=== PATIENT | female | born 1985 | race Caucasian/White ===

== ENCOUNTER 2017-03-24 06:33 | Day surgery (SDC) | payer MEDICAID, OTHER ==
[~2017-03-24 06:33] MED LIST: CEFAZOLIN 1 GM/D5W RTU 1 GM/50 ML RTUPB IV PRN
[2017-03-24] MEDS ORDERED: BUPIVACAINE HCL 0.5 % INJ/PF 30 ML SDV ONE (07:08)
[2017-03-24] MEDS ORDERED: LIDOCAINE 2% INJ (20 MG/ML) 20 ML MDV ONE (07:08)
[2017-03-24] MEDS ORDERED: POLYMYXIN B SULFATE INJ 500000 UNIT VIAL ONE (07:08)
[2017-03-24] MEDS ORDERED: NORMAL SALINE INJ/PF 0.9% 10 ML SDV ONE (07:09)
[2017-03-24] MEDS ORDERED: BACITRACIN INJ 50,000 UNIT VIAL ONE (07:09)
[2017-03-24] MEDS ORDERED: MIDAZOLAM 2 MG/2 ML INJ ONE ×2 (07:14→08:17)
[2017-03-24] MEDS ORDERED: ONDANSETRON HCL INJ/PF 4 MG/2 ML SDV ONE (07:15)
[2017-03-24] MEDS ORDERED: PROPOFOL INJ 200 MG/20 ML VIAL IV ONE ×2 (07:15→08:18)
[2017-03-24] MEDS ORDERED: FENTANYL CITRATE INJ/PF 100 MCG/2 ML AMPUL ONE ×2 (07:15→08:17)
[2017-03-24] MEDS ORDERED: BUPIVACAINE INJ/PF LIPOSOME/PF 266 MG/20 ML SDV ONE (08:13)
--- NOTE | 2017-03-24 10:11 | SURGICARE DISCHARGE SUMMARY E ---
[facility] Discharge Summary NAME: CAROLEE BRUNO AGE: 31Y ADMITTED: 03/24/2017 DISCHARGED: 03/24/2017 SURGICAL PROCEDURE: Correction of bunion by Nikita osteotomy with internal screw fixation, right foot. POSTOPERATIVE DIAGNOSIS: Hallux valgus right foot. SURGEON: FORD ROONEY DPM REAL ESTATE TEACHER: Nick So DPM HOSPITAL COURSE: The patient was admitted to [facility] with chief complaint of a painful bunion on her foot. She had undergone conservative therapy with different shoes and anti-inflammatories, but there was no change in her symptoms. Patient desired to have the bunion surgically corrected. She underwent the above surgical procedure without any complications and was transferred to the recovery room. She was discharged with a surgical shoe, an ice pack, postoperative instructions including no weightbearing on the surgical foot, and postoperative prescriptions for Percocet 5/325 mg #60, Phenergan 25 mg #30, and cephalexin 500 mg #4. She was given a followup appointment in the doctor's office in 1 week. The patient was discharged from [facility]. DICTATING PHYSICIAN: FORD ROONEY D.P.M. [id number] PHY#: [id number] ID: [id number] JOB#: [id number] ACCT: [id number] cc:FORD ROONEY DPM >
--- NOTE | 2017-03-24 10:54 | SURGICARE OPERATIVE REPORT E ---
[facility] Operative Report NAME: CAROLEE BRUNO AGE: 31Y DATE OF SURGERY: 03/24/2017 ROOM: PREOPERATIVE DIAGNOSIS: HALLUX VALGUS, RIGHT FOOT. POSTOPERATIVE DIAGNOSIS: HALLUX VALGUS, RIGHT FOOT. OPERATION: CORRECTION OF BUNION BY CHELSIE OSTEOTOMY WITH INTERNAL SCREW FIXATION, RIGHT FOOT. SURGEON: FORD ROONEY DPM SHOVEL MECHANIC: Nick So DPM SURGICAL PROCEDURE: Correction of bunion by Chelsie osteotomy with internal screw fixation, right foot. PROCEDURE: Following induction of IV regional and local anesthesia, the right foot and leg were prepped and draped in the usual sterile manner. A pneumatic tourniquet was placed around the right ankle and inflated to 250 mmHg after exsanguination of the limb via Esmarch bandage. The following surgical procedures was then performed: Correction of bunion by Chelsie osteotomy with internal screw fixation, right foot. Attention was directed to the dorsal aspect of the first metatarsal phalangeal joint of the right foot, where an approximately 5 cm dorsal linear incision was made. The incision was deepened via sharp dissection. All bleeders were clamped and bovied as necessary for the purposes of hemostasis. A capsule incision was made in the same manner as the original skin incision and was made medial to the extensor hallucis longus tendon. The capsule was then freed medially and laterally from the bone. Attention was then directed into the first interspace. Utilizing blunt dissection, the transverse adductor tendon was identified and isolated and sharply incised utilizing tenotomy scissors. Attention was directed back to the medial aspect of the first metatarsal head. Utilizing a Arkadin sagittal saw, the hypertrophied medial eminence of the first metatarsal head was osteotomized, parallel to the long axis of the bone, and removed in toto from the wound. The area was then rasped smooth utilizing a Arkadin cross-cut rasp. There was excess bone around the lip of the base of the proximal phalanx of the hallux and this was removed utilizing rongeurs. There was also a small erosion at the dorsal aspect of the first metatarsal head and this was removed utilizing a rongeur and the site was then rasped smooth utilizing a Arkadin cross-cut rasp. Chelsie osteotomy was then performed in the proximal phalanx. Approximately a 2 mm wedge of bone was removed. The osteotomy went from distal medial to proximal lateral, with the apex being at the lateral point; the base being on the medial side; and approximately 2 mm wedge of bone was removed. This was done utilizing a Arkadin sagittal saw. The site was then feathered utilizing the saw until the osteotomy closed down on its own. The osteotomy was then temporarily fixated utilizing a 0.86 guidewire. An X-ray was taken and it was noted that the guidewire was in good position. The osteotomy was closed down upon itself and that the first metatarsal phalangeal joint was now in a more anatomically-correct position. A reamer measure was then threaded down the guidewire. A hole was reamed to accept the head of the screw and it was noted that a 22 mm 2.3 cannulated screw would be needed. The screw was then head-threaded down the guidewire and tightened down until the osteotomy was closed down on itself and stably fixated. Another x-ray was taken and it was noted that this screw was in excellent position and again, the osteotomy was closed down on itself and stably fixated. The guidewire was removed. The area was then flushed with copious amounts of antibacterial saline solution. Bone wax was then applied to the medial aspect of the first metatarsal. The capsule was then coapted and maintained utilizing simple interrupted sutures of 3-0 Vicryl. Exparel was then subcutaneously injected along the incision and approximately 17 mL of it was used. The subcutaneous tissue was then closed utilizing simple interrupted sutures of 4-0 Vicryl. The skin was then coapted and maintained utilizing horizontal mattress sutures of 5-0 Nylon. A dry sterile dressing was then applied consisting of Jerry silk, 4 x 4s, Conform, Kerlix, and Coban. The pneumatic tourniquet was released. It was noted that all digits were warm and viable, and the patient was transferred to the recovery room. DICTATING PHYSICIAN: FORD ROONEY D.P.M. [id number] PHY#: [id number] ID: [id number] JOB#: [id number] ACCT: [id number] cc:FORD ROONEY DPM >
--- NOTE | 2017-03-24 14:05 | RADIOLOGY REPORT (SQ) ---
EXAM DESCRIPTION: FOOT RIGHT 2 VIEWS; NO CHG FLUORO COMPLETED DATE/TIME: 03/24/2017 12:08 pm REASON FOR STUDY: RT FOOT DOUBLE BUNIONECTOMY M20.21 HALLUX RIGIDUS, RIGHT FOOT COMPARISON: None. FLUOROSCOPY TIME: 2 seconds 2 C-arm images saved to PACS. TECHNIQUE: Intra-operative images acquired during surgical procedure to evaluate progress. NUMBER OF IMAGES: 2 C-arm images LIMITATIONS: None. FINDINGS: Intra procedural imaging and fluoro during an osteotomy and screw placement at the great t oe proximal phalanx. Bony resurfacing medial edge, 1st metatarsal head. Please see the operative re port for further details. IMPRESSION: Intra procedural imaging and fluoro COMMENT: Quality ID [id number]: Final reports for procedures using fluoroscopy that document radiation exp osure indices, or exposure time and number of fluorographic images (if radiation exposure indices are not available) Please consult full operative report of the attending physician for description of the procedure. TECHNICAL DOCUMENTATION: JOB ID: [id number] [employer]- All Rights Reserved
== END 2017-03-24 10:35 | disposition home or self-care (01) ==
LOC: SC 06:33
PROVIDERS: ATTEND Podiatrist Foot Surgery
PROC: 0QTN0ZZ Resection of Right Metatarsal, Open Approach (ICD-10-PCS; principal; 2017-03-24 07:30)
DX: M20.11 Hallux valgus (acquired), right foot (principal); K76.0 Fatty (change of) liver, not elsewhere classified; E66.9 Obesity, unspecified; G43.909 Migraine, unspecified, not intractable, without status migrainosus; Z87.891 Personal history of nicotine dependence; Z68.37 Body mass index [BMI] 37.0-37.9, adult; Z79.899 Other long term (current) drug therapy
CPT/HCPCS: 73620; 28292; C1713; C1769; J2250; J3490 ×4; J0690; J3010; J2405; J2704; C9290; 01480

== ENCOUNTER 2017-08-03 23:06 | Emergency (ER) | payer MEDICAID ==
[2017-08-03 23:14] VITALS: BP 126/79
--- NOTE | 2017-08-04 00:26 | RADIOLOGY REPORT (SQ) ---
EXAM DESCRIPTION: pelvis XR, hip XR CLINICAL HISTORY: 31 years, Female, Pain s/p fall COMPARISON: None. NUMBER OF VIEWS: Two TECHNIQUE: Frontal view of the pelvis, lateral view of the left hip LIMITATIONS: None. FINDINGS: No acute fracture or dislocation of the left hip. Intact pelvic ring. Symmetric SI joints. IMPRESSION: No acute osseous abnormality. 2011 [employer]- All Rights Reserved
[2017-08-04] MEDS ORDERED: TRAMADOL HCL 50 MG TABLET PO ONE (01:08)
--- NOTE | 2017-08-04 01:08 | ER Document Report ---
HPI - HPI Pain Level: 4 Context: Patient is a 31-year-old female presents emergency department after a fall. Patient states that she is ambulating and she slipped landing on her left hip. She admits that she has been able to ambulate. She admits to stiffness and pain along her left buttock. She denies any head injury. She denies any urinary/stool incontinence, saddle anesthesia, numbness or tingling in her bilateral lower extremities. States that she took 800 mg prior to arrival Past Medical History - Social History Smoking Status: Unknown if Ever Smoked Family History: Reviewed & Not Pertinent - Past Medical History Cardiac Medical History: Denies: Hx Heart Attack, Hx Hypertension Pulmonary Medical History: Denies: Hx Asthma Neurological Medical History: Denies: Hx Cerebrovascular Accident, Hx Seizures GI Medical History: Denies: Hx Hepatitis, Hx Hiatal Hernia, Hx Ulcer Infectious Medical History: Denies: Hx Hepatitis Past Surgical History: Reports: Hx Hysterectomy. Denies: Hx Mastectomy, Hx Open Heart Surgery, Hx Pacemaker Vertical Provider Document - CONSTITUTIONAL Agree With Documented VS: Yes Notes: PHYSICAL EXAM GENERAL: Alert, interacts well. HEAD: Normocephalic, atraumatic. EXTREMITIES: Moves all 4 extremities spontaneously. Patient able to bear weight. Able to flex the hip and internal and externally rotate. Pelvis nontender to rock test. No edema, radial and dorsalis pedis pulses 2/4 bilaterally. No cyanosis. NEUROLOGICAL: Alert and oriented x4. Normal speech. PSYCH: Normal affect, normal mood. SKIN: Warm, dry, normal turgor. No rashes or lesions noted. - INFECTION CONTROL TRAVEL OUTSIDE OF THE [place] IN LAST 30 DAYS: No Course - Re-evaluation Re-evalutation: 08/04/17 01:06 Patient is a 31-year-old female presents with symptoms and clinical history significant for a contusion. No evidence of a septic joint, gout flare, dislocation, or fracture on exam and imaging. Vitals wnl. At this time, I do not see an indication for labs or further imaging. Will discharge with conservative measures, return precautions, and follow-up recommendations. - Vital Signs Vital signs: Temp Pulse Resp BP Pulse Ox 98.6 F 71 20 126/79 H 98 08/03/17 23:12 08/03/17 23:12 08/03/17 23:12 08/03/17 23:12 08/03/17 23:12 - Diagnostic Test Radiology reviewed: Image reviewed, Reports reviewed Discharge - Discharge Clinical Impression: Fall Qualifiers: Encounter type: initial encounter Qualified Code(s): W19.XXXA - Unspecified fall, initial encounter Condition: Good Disposition: HOME, SELF-CARE Instructions: Contusion ([facility]) Prescriptions: Cyclobenzaprine HCl [Flexeril 10 mg Tablet] 10 mg PO TIDP PRN #6 tablet PRN Reason:
== END 2017-08-04 01:45 | disposition home or self-care (01) ==
LOC: ER 23:06
DX: M25.552 Pain in left hip (principal); W01.0XXA Fall on same level from slipping, tripping and stumbling without subsequent striking against object, initial encounter
CPT/HCPCS: 99283

== ENCOUNTER → 2017-08-30 | Outpatient (CLI) | payer MEDICAID ==
--- NOTE | 2017-08-30 13:15 | WOMENS IMAGING REPORT ---
EXAM DESCRIPTION: U/S ABDOMEN LIMITED COMPLETED DATE/TIME: 08/30/2017 1:00 pm REASON FOR STUDY: EPIGASTRIC PAIN; R10.13 R10.13 EPIGASTRIC PAIN K76.0 FATTY (CHANGE OF) LIVER, NO T ELSEWHERE CLASSIFIED COMPARISON: None. TECHNIQUE: Dynamic and static grayscale images acquired of the abdomen and recorded on PACS. Additio nal selected color Doppler and spectral images recorded. LIMITATIONS: None. FINDINGS: PANCREAS: No masses. Visualized pancreatic duct normal caliber. LIVER: Increased echogenicity consistent with fatty infiltration. No masses. LIVER VASCULATURE: Normal directional flow of the main portal vein and hepatic veins. GALLBLADDER: No stones. Normal wall thickness. No pericholecystic fluid. ULTRASOUND-DETECTED MYERS'S SIGN: Negative. INTRAHEPATIC DUCTS AND COMMON DUCT: CBD and intrahepatic ducts normal caliber. No filling defects. INFERIOR VENA CAVA: Normal flow. AORTA: Not visualized. RIGHT KIDNEY: Normal size. Normal echogenicity. No solid or suspicious masses. No hydronephrosis. No calcifications. PERITONEAL AND RIGHT PLEURAL SPACE: No ascites or effusions. OTHER: No other significant findings. IMPRESSION: Fatty liver. TECHNICAL DOCUMENTATION: JOB ID: [id number] [employer]- All Rights Reserved Reading location - IP/workstation name: [email or web address]
== END ==
LOC: WI 10:21
PROVIDERS: ATTEND Internal Medicine Gastroenterology
DX: R10.13 Epigastric pain (principal); K76.0 Fatty (change of) liver, not elsewhere classified
CPT/HCPCS: 76705

== ENCOUNTER 2017-10-28 20:04 | Emergency (ER) | payer MEDICAID ==
[2017-10-28] MEDS ORDERED: KETOROLAC TROMETHAMINE 60 MG/2 ML SDV IM ONE (20:41)
--- NOTE | 2017-10-28 20:48 | ER Document Report ---
ED GI/ - General Chief Complaint: Abdominal Pain Stated Complaint: ABDOMINAL PAIN Time Seen by Provider: 10/28/17 20:29 Mode of Arrival: Ambulatory Information source: Patient Notes: Patient is a 31-year-old female who presents with chief complaint of left lower quadrant pain for the last 3 weeks. Patient reports that pain has been intermittent since she did not think it was anything serious, over the last week the pain has become more constant and over the last 2 days the pain has become more severe. Patient reports the pain is mostly located to the left lower quadrant but does radiate up into the left flank. Patient reports nausea , denies vomiting or diarrhea. Patient denies any dysuria however she reports that she has had urinary tract infections in the past without dysuria. Patient has a history of PCOS, celiac disease, kidney infections and renal stones. TRAVEL OUTSIDE OF THE [place] IN LAST 30 DAYS: No - Related Data Allergies/Adverse Reactions: No Known Allergies Allergy (Unverified 03/17/17 12:41) Past Medical History - General Information source: Patient - Social History Smoking Status: Never Smoker Chew tobacco use (# tins/day): No Frequency of alcohol use: None Drug Abuse: None Family History: Reviewed & Not Pertinent Patient has suicidal ideation: No Patient has homicidal ideation: No - Past Medical History Cardiac Medical History: Denies: Hx Heart Attack, Hx Hypertension Pulmonary Medical History: Denies: Hx Asthma Neurological Medical History: Denies: Hx Cerebrovascular Accident, Hx Seizures Renal/ Medical History: Reports: Hx Ovarian Cysts, Other - PCOS. Denies: Hx Peritoneal Dialysis GI Medical History: Reports: Other - Celiac. Denies: Hx Hepatitis, Hx Hiatal Hernia, Hx Ulcer Infectious Medical History: Denies: Hx Hepatitis Past Surgical History: Reports: Hx Hysterectomy. Denies: Hx Mastectomy, Hx Open Heart Surgery, Hx Pacemaker - Immunizations Immunizations up to date: Yes Hx Diphtheria, Pertussis, Tetanus Vaccination: Yes Review of Systems - Review of Systems Constitutional: No symptoms reported EENT: No symptoms reported Cardiovascular: No symptoms reported Respiratory: No symptoms reported Gastrointestinal: See HPI Genitourinary: See HPI Female Genitourinary: No symptoms reported Musculoskeletal: No symptoms reported Skin: No symptoms reported Hematologic/Lymphatic: No symptoms reported Neurological/Psychological: No symptoms reported Physical Exam - Vital signs Vitals: Temp Pulse Resp BP Pulse Ox 98.8 F 77 16 122/69 98 10/28/17 20:11 10/28/17 20:11 10/28/17 20:11 10/28/17 20:11 10/28/17 20:11 - Notes Notes: PHYSICAL EXAMINATION: GENERAL: Well-appearing, well-nourished and in no acute distress. HEAD: Atraumatic, normocephalic. EYES: Pupils equal round and reactive to light, extraocular movements intact, conjunctiva are normal. ENT: Nares patent, oropharynx clear without exudates. Moist mucous membranes. NECK: Normal range of motion, supple without lymphadenopathy LUNGS: Breath sounds clear to auscultation bilaterally and equal. No wheezes rales or rhonchi. HEART: Regular rate and rhythm without murmurs ABDOMEN: Soft, nondistended abdomen. Tenderness to palpation to left lower quadrant. No guarding, no rebound. No masses appreciated. Female : No CVA tenderness Musculoskeletal: Normal range of motion, no pitting or edema. No cyanosis. NEUROLOGICAL: Cranial nerves grossly intact. Normal speech, normal gait. Normal sensory, motor exams PSYCH: Normal mood, normal affect. SKIN: Warm, Dry, normal turgor, no rashes or lesions noted. Course - Re-evaluation Re-evalutation: CBC, CMP and urinalysis are all unremarkable. Lipase is also within normal limits. Patient was sent for a transvaginal ultrasound to evaluate her ovaries for any possible ovarian cysts, this ultrasound was without any acute findings. I will place patient on a short 3 day course of cephalexin for cystitis and send urine for culture. Patient is agreeable to this plan. - Vital Signs Vital signs: Temp Pulse Resp BP Pulse Ox 98.8 F 77 16 122/69 98 10/28/17 20:11 10/28/17 20:11 10/28/17 20:11 10/28/17 20:11 10/28/17 20:11 - Laboratory Result Diagrams: 10/28/17 21:19 10/28/17 21:19 Laboratory results interpreted by me: 10/28/17 10/28/17 20:21 21:19 Plt Count 472 H Urine Blood SMALL H Discharge - Discharge Clinical Impression: Cystitis Condition: Stable Disposition: HOME, SELF-CARE Additional Instructions: Although your workup today was normal, I will be sending your urine for a urine culture. I will put you on a short 3 day course of antibiotics as her symptoms definitely align with a urinary tract infection. We will call you if there is anything abnormal on your culture. Please return to the emergency department for any worrisome symptoms. ANTIBIOTIC THERAPY: You have been given an antibiotic prescription. It's important that you take all the medication, unless instructed otherwise by your physician. Failure to complete the entire course can result in relapse of your condition. Common side effects of antibiotics include nausea, intestinal cramping, or diarrhea. Women may develop vaginal yeast infections, and babies can get yeast (thrush) in the mouth following the use of antibiotics. Contact your physician if you develop significant side effects from this medication. Allergy to this antibiotic can result in hives, wheezing, faintness, or itching. If symptoms of allergy occur, stop the medication and call the doctor. CEPHALEXIN: The antibiotic you've been prescribed is a member of the cephalosporin class. This type of antibiotic covers a wide variety of infections, including those of the skin, lungs, and urinary tract. It's useful for staph infections. This antibiotic is slightly similar to the penicillin family. In rare cases , a person who is allergic to penicillin will also be allergic to this medication. If you have had a severe allergic reaction to penicillin, and have not taken this antibiotic since that time, notify your doctor. Antibiotics which cover many germs ("broad spectrum" antibiotics) are more likely to cause diarrhea or "yeast" infections. Women prone to vaginal yeast problems may suffer an attack after taking this antibiotic. In infants, oral thrush (white spots "stuck" on the cheek) or yeast diaper rash may result. See your doctor if these problems occur. Call at once if you develop itching, hives , shortness of breath, or lightheadedness. FOLLOW-UP CARE: If you have been referred to a physician for follow-up care, call the physician s office for an appointment as you were instructed or within the next two days. If you experience worsening or a significant change in your symptoms, notify the physician immediately or return to the Emergency Department at any time for re-evaluation. Prescriptions: Cephalexin Monohydrate [Keflex 500 mg Capsule] 500 mg PO Q6H 3 Days #9 capsule
[2017-10-28 21:36] LABS: APPEARANCE,URINE CLEAR; BILIRUBIN,URINE NEGATIVE (NEGATIVE); COLOR,URINE STRAW; GLUCOSE, URINE NEGATIVE (NEGATIVE); KETONES,URINE NEGATIVE (NEGATIVE); LEUKOCYTE ESTERASE,URINE NEGATIVE (NEGATIVE); NITRITE,URINE NEGATIVE (NEGATIVE); PROTEIN,URINE NEGATIVE (NEGATIVE); URINE SPECIFIC GRAVITY 1.008; UROBILINOGEN,URINE NEGATIVE mg/dL (<2.0)
[2017-10-28 21:38] LABS: ABSOLUTE BASOPHILS # (AUTO) 0.1 10^3/uL (0.0-0.2); ABSOLUTE EOSINOPHILS # (AUTO) 0.1 10^3/uL (0.0-0.6); ABSOLUTE LYMPHOCYTES (AUTO) 2.5 10^3/uL (0.5-4.7); ABSOLUTE MONOCYTES (AUTO) 0.8 10^3/uL (0.1-1.4); ABSOLUTE NEUT (AUTO) 6.3 10^3/uL (1.7-8.2); BASOPHILS % (AUTO) 0.6 % (0-2); EOSINOPHILS % (AUTO) 1.4 % (0-6); HEMATOCRIT 36.1 % (36.0-47.0); HEMOGLOBIN 12.5 g/dL (12.0-15.5); LYMPHOCYTES % (AUTO) 25.8 % (13-45); MEAN CORPUSCULAR HEMOGLOBIN 31.9 pg (27.0-33.4); MEAN CORPUSCULAR HGB CONC 34.6 g/dL (32.0-36.0); MEAN CORPUSCULAR VOLUME 92 fl (80-97); PLATELET COUNT 472 10^3/uL (150-450); RED BLOOD COUNT 3.91 10^6/uL (3.72-5.28); RED CELL DISTRIBUTION WIDTH 12.9 % (11.5-14.0); SEGMENTED NEUTROPHILS % (AUTO) 64.2 % (42-78); TOTAL CELLS COUNTED % (AUTO) 100 %; WHITE BLOOD COUNT 9.9 10^3/uL (4.0-10.5)
[2017-10-28 21:52] LABS: ALANINE AMINOTRANSFERASE 34 U/L (9-52); ALBUMIN 4.4 g/dL (3.5-5.0); ALKALINE PHOSPHATASE 55 U/L (38-126); ANION GAP 15 (5-19); ASPARTATE AMINO TRANSFERASE 19 U/L (14-36); BILIRUBIN,DIRECT 0.2 mg/dL (0.0-0.4); BILIRUBIN,TOTAL 0.2 mg/dL (0.2-1.3); BLOOD UREA NITROGEN 12 mg/dL (7-20); CALCIUM 9.8 mg/dL (8.4-10.2); CARBON DIOXIDE 22 mmol/L (22-30); CHLORIDE 107 mmol/L (98-107); GLUCOSE 82 mg/dL (75-110); LIPASE 57.5 U/L (23-300); POTASSIUM 4.2 mmol/L (3.6-5.0); SODIUM 143.9 mmol/L (137-145); TOTAL PROTEIN 7.3 g/dL (6.3-8.2)
--- NOTE | 2017-10-28 23:13 | RADIOLOGY REPORT (SQ) ---
EXAM DESCRIPTION: US TRANSVAGINAL COMPLETED DATE/TME: 10/28/2017 21:55 CLINICAL HISTORY: 31 years, Female, LLQ pain hx of PCOS COMPARISON: None. TECHNIQUE: Complete pelvic ultrasound with transvaginal imaging. FINDINGS: Partial hysterectomy. The uterus is not identified. The ovaries are not identified bilaterally. No large adnexal masses. Tiny amount of free pelvic fluid. IMPRESSION: 1. Prior partial hysterectomy. Ovaries are not identified. 2. Tiny amount of free pelvic fluid. 2010 [employer]- All Rights Reserved
[2017-10-28] MEDS ORDERED: CEPHALEXIN 500 MG CAPSULE PO ONE (23:21)
[2017-10-28 23:39] VITALS: BP 124/79
== END 2017-10-28 23:37 | disposition home or self-care (01) ==
LOC: ER 20:04
DX: N30.90 Cystitis, unspecified without hematuria (principal); R10.32 Left lower quadrant pain; R11.0 Nausea; Z90.711 Acquired absence of uterus with remaining cervical stump
CPT/HCPCS: 99284; 96372; 36415; 87086; 83690; 85025; 80053; 81001; 76830; 93976; J1885

== ENCOUNTER 2018-01-12 06:37 | Day surgery (SDC) | payer MEDICAID ==
[2018-01-12] MEDS ORDERED: POLYMYXIN B SULFATE INJ 500000 UNIT VIAL ONE (07:12)
[2018-01-12] MEDS ORDERED: BUPIVACAINE HCL 0.5 % INJ/PF 30 ML SDV ONE (07:12)
[2018-01-12] MEDS ORDERED: NORMAL SALINE INJ/PF 0.9% 10 ML SDV ONE (07:13)
[2018-01-12] MEDS ORDERED: LIDOCAINE 2% INJ (20 MG/ML) 20 ML MDV ONE (07:13)
[2018-01-12] MEDS ORDERED: BACITRACIN INJ 50,000 UNIT VIAL ONE (07:13)
[2018-01-12] MEDS ORDERED: ONDANSETRON HCL INJ/PF 4 MG/2 ML SDV ONE (07:17)
[2018-01-12] MEDS ORDERED: HYDROMORPHONE HCL INJ/PF 2 MG/ML AMPULE ONE (07:18)
[2018-01-12] MEDS ORDERED: MIDAZOLAM 2 MG/2 ML INJ ONE (07:18)
[2018-01-12] MEDS ORDERED: FENTANYL CITRATE INJ/PF 100 MCG/2 ML AMPUL ONE (07:18)
[2018-01-12] MEDS ORDERED: PROPOFOL INJ 200 MG/20 ML VIAL IV ONE (07:19)
[2018-01-12] MEDS ORDERED: BUPIVACAINE INJ/PF LIPOSOME/PF 266 MG/20 ML SDV ONE (08:45)
--- NOTE | 2018-01-12 11:18 | RADIOLOGY REPORT (SQ) ---
EXAM DESCRIPTION: FOOT LEFT 2 VIEWS; NO CHG FLUORO COMPLETED DATE/TIME: 01/12/2018 11:05 am REASON FOR STUDY: LT FOOT BUNIONECTOMY M20.12 HALLUX VALGUS (ACQUIRED), LEFT FOOT COMPARISON: None. FLUOROSCOPY TIME: 0.07 seconds Spot images saved to PACS. TECHNIQUE: Intra-operative images acquired during surgical procedure to evaluate progress. NUMBER OF IMAGES: 1 LIMITATIONS: None. FINDINGS: Fluoroscopy was provided for intraoperative procedure. Single view demonstrates postsurgi fatmata changes in the proximal phalanx of the great toe. Please refer to the operative report for furth er discussion. IMPRESSION: IMAGE(S) OBTAINED DURING PROCEDURE. COMMENT: Quality ID [id number]: Final reports for procedures using fluoroscopy that document radiation exp osure indices, or exposure time and number of fluorographic images (if radiation exposure indices are not available) Please consult full operative report of the attending physician for description of the procedure. TECHNICAL DOCUMENTATION: JOB ID: [id number] [employer]- All Rights Reserved Reading location - IP/workstation name: [email or web address]
--- NOTE | 2018-01-12 11:18 | RADIOLOGY REPORT (SQ) ---
EXAM DESCRIPTION: FOOT LEFT 2 VIEWS; NO CHG FLUORO COMPLETED DATE/TIME: 01/12/2018 11:05 am REASON FOR STUDY: LT FOOT BUNIONECTOMY M20.12 HALLUX VALGUS (ACQUIRED), LEFT FOOT COMPARISON: None. FLUOROSCOPY TIME: 0.07 seconds Spot images saved to PACS. TECHNIQUE: Intra-operative images acquired during surgical procedure to evaluate progress. NUMBER OF IMAGES: 1 LIMITATIONS: None. FINDINGS: Fluoroscopy was provided for intraoperative procedure. Single view demonstrates postsurgi fatmata changes in the proximal phalanx of the great toe. Please refer to the operative report for furth er discussion. IMPRESSION: IMAGE(S) OBTAINED DURING PROCEDURE. COMMENT: Quality ID [id number]: Final reports for procedures using fluoroscopy that document radiation exp osure indices, or exposure time and number of fluorographic images (if radiation exposure indices are not available) Please consult full operative report of the attending physician for description of the procedure. TECHNICAL DOCUMENTATION: JOB ID: [id number] [employer]- All Rights Reserved Reading location - IP/workstation name: [email or web address]
--- NOTE | 2018-01-12 12:31 | SURGICARE OPERATIVE REPORT E ---
[facility] NAME: CAROLEE BRUNO AGE: 32Y DATE OF SURGERY: 01/12/2018 ROOM: PREOPERATIVE DIAGNOSIS: Hallux valgus, left foot. POSTOPERATIVE DIAGNOSIS: Hallux valgus, left foot. SURGICAL PROCEDURE: Correction bunion by Nikita osteotomy with internal fixation left foot. SURGEON: FORD ROONEY DPM MONITORING MANAGER: MARÍA ELENA RUSH DPM PROCEDURE: Following induction of IV regional local anesthesia, the left foot and leg were prepped and draped in the usual sterile manner. A pneumatic tourniquet was placed around the left ankle and inflated to 250 mmHg after exsanguination of the limb via Esmarch bandage. The following surgical procedure was then performed: Correction of bunion by Nikita osteotomy with internal fixation left foot. Attention was directed to the dorsal aspect of the first metatarsophalangeal joint of the left foot where an approximately 5 cm dorsal linear incision was made. The incision was deep and via sharp dissection. All bleeders were clamped and bovied as necessary for the purposes of hemostasis. A capsular incision was made in the same manner as the original skin incision. It was made medial to the extensor hallucis longus tendon. The capsule was then reflected medially and laterally from the first metatarsophalangeal joint. Attention was then directed to the first interspace, where utilizing blunt dissection the transverse adductor tendon was identified and isolated and then sharply incised. Attention was directed back to the medial aspect of the first metatarsal head where utilizing a Mariann sagittal saw the hypertrophied medial eminence of the first metatarsal head was osteotomized parallel to the long axis of the bone removed en toto to the wound. Attention was directed to the proximal phalanx where an Nikita osteotomy was then performed with the base being medial and the apex being lateral with an approximately 2 mm wedge of bone being removed. This was done utilizing a Mariann sagittal saw. Once the osteotomy was closed down on itself, it was temporarily fixated utilizing a 0.86 guidewire directed from the medial proximal condyle to distal lateral. An x-ray was taken and it was noted that the osteotomy was closed down on itself, that the wire was in a good position, and that the first metatarsophalangeal joint was in a more anatomic correction position. A reamer measure was threaded down the guidewire to ream a hole to accept the head of the screw and it was noted that a 20 mm 2.3 cancellous screw would be needed. The proximal aspect of the osteotomy was then overdrilled utilizing a 1.7 drill. The 20 mm 2.3 cancellous screw was threaded down the guidewire and tightened down until the osteotomy was stably fixated and closed down. The guidewire was removed and another x-ray was taken. It was noted that the screw was in excellent position and that the osteotomy was closed down on itself. The medial aspect of the first metatarsal head was then rasped smooth utilizing a PlovghcuDatabraid rasp. The site was then flushed with copious amounts of antibacterial saline solution. The capsule was then coapted and maintained utilizing simple interrupted sutures of 3-0 Vicryl. The subcutaneous tissue was then coapted and maintained utilizing simple interrupted sutures of 4-0 Vicryl. Total of 20 mL of Exparel was then injected along the surgical incision and the surgical site. The skin was then coapted and maintained utilizing horizontal mattress sutures of 5-0 nylon. Dry sterile dressing was then applied consisting of Jrery silk, 4 x 4s, Conform, Kerlix, and Coban. The pneumatic tourniquet was released. It was noted that all digits were warm and viable and the patient was transferred to the recovery room. DICTATING PHYSICIAN: FORD ROONEY D.P.M. [id number] PHY#: [id number] ID: [id number] JOB#: [id number] ACCT: [id number] cc:BECKIE WHITNEY
--- NOTE | 2018-01-13 09:21 | SURGICARE DISCHARGE SUMMARY E ---
[facility] Discharge Summary NAME: CAROLEE BRUNO AGE: 32Y ADMITTED: 01/12/2018 DISCHARGED: 01/12/2018 SURGICAL PROCEDURE: Correction bunion by Nikita osteotomy with internal fixation left foot. POSTOPERATIVE DIAGNOSIS: Hallux valgus, left foot. SURGEON: FORD ROONEY DPM GOLD LAYER: MARÍA ELENA RUSH DPM DISCHARGE SUMMARY: The patient was admitted to [facility] with a chief complaint of a painful bunion on her left foot. She stated that it had been sore for the past couple of months, especially when she wore shoes. Patient stated that she would like to have this problem surgically corrected and she had her right one done earlier in the year. Patient underwent the above surgical procedure without any complications and was transferred to the recovery room. She was discharged with a surgical shoe and ice pack, postoperative instructions including no weightbearing on the left foot, and postoperative prescriptions for Percocet 5/325 mg #50, Phenergan 25 mg #25, and cephalexin 500 mg #4. She was given a follow-up appointment at doctor's office in 1 week. The patient was discharged from [facility]. DICTATING PHYSICIAN: FORD ROONEY D.P.M. [id number] PHY#: [id number] ID: [id number] JOB#: [id number] ACCT: [id number] cc:FORD ROONEY DPM >
== END 2018-01-12 10:26 | disposition home or self-care (01) ==
LOC: SC 06:37
PROVIDERS: ATTEND Podiatrist Foot Surgery
DX: M20.12 Hallux valgus (acquired), left foot (principal); E78.5 Hyperlipidemia, unspecified; G43.909 Migraine, unspecified, not intractable, without status migrainosus; K58.9 Irritable bowel syndrome, unspecified; E55.9 Vitamin D deficiency, unspecified; Z79.899 Other long term (current) drug therapy; Z88.8 Allergy status to other drugs, medicaments and biological substances
CPT/HCPCS: 28298; 73620; C1769; C1713; J2250; J3490 ×5; J0690; J3010; J1170; J2405; J2704; C9290; 01480

== ENCOUNTER 2018-03-01 10:18 | Emergency (ER) | payer MEDICAID ==
[2018-03-01 10:32] VITALS: BP 121/74
--- NOTE | 2018-03-01 10:35 | ER Document Report ---
ED ENT - General Chief Complaint: Sore Throat Stated Complaint: SEVERE SORE THROAT Time Seen by Provider: 03/01/18 10:32 Mode of Arrival: Ambulatory Information source: Patient Notes: 32-year-old female presented to ED for complaint of sore throat swollen throat trouble breathing ears her joints hurt fever of 100 202 for the last 3 days. She states she takes Tylenol and Motrin but the fever comes right back. It is alert and oriented respirations regular and unlabored speaking in full sentences. She her temperature is 100.2 at this time pulse is 88 sats 100%. She does have a slightly swollen tonsils but they are not red or exudative. Strep test was sent. Flu test was also sent. TRAVEL OUTSIDE OF THE [place] IN LAST 30 DAYS: No - HPI Patient complains to provider of: Nose problem, Throat problem Onset: Other - 3 days Onset/Duration: Intermittent Quality of pain: Sharp, Stabbing Severity: Severe Pain Level: 5 Context: Injury, Recent Illness Location of pain: Nose, Sinus, Throat Associated symptoms: Ear pain, Fever, Runny nose, Sinus pain, Sinus drainage, Sore throat Similar symptoms previously: Yes Recently seen / treated by doctor: No - Related Data Allergies/Adverse Reactions: No Known Allergies Allergy (Verified 03/01/18 10:19) Past Medical History - Social History Smoking Status: Former Smoker Chew tobacco use (# tins/day): No Frequency of alcohol use: None Drug Abuse: None Occupation: MOM Lives with: Family Family History: Reviewed & Not Pertinent Patient has suicidal ideation: No Patient has homicidal ideation: No - Past Medical History Cardiac Medical History: Reports: None Pulmonary Medical History: Reports: None EENT Medical History: Reports: None Neurological Medical History: Reports: None Endocrine Medical History: Reports: None Renal/ Medical History: Reports: Hx Ovarian Cysts Malignancy Medical History: Reports: None GI Medical History: Reports: Other - Fatty liver disease Musculoskeletal Medical History: Reports Other - Bunions Skin Medical History: Reports None Psychiatric Medical History: Reports: None Traumatic Medical History: Reports: None Infectious Medical History: Denies: Hx Hepatitis Past Surgical History: Reports: Hx Hysterectomy, Other - Bilateral bunionectomy - Immunizations Immunizations up to date: Yes Hx Diphtheria, Pertussis, Tetanus Vaccination: Yes Review of Systems - Review of Systems Constitutional: Chills, Fever, Recent illness EENT: Nose congestion, Nose discharge, Sinus discharge, Throat pain Cardiovascular: No symptoms reported Respiratory: Cough Gastrointestinal: No symptoms reported Genitourinary: No symptoms reported Female Genitourinary: No symptoms reported Musculoskeletal: No symptoms reported Skin: No symptoms reported Hematologic/Lymphatic: No symptoms reported Neurological/Psychological: No symptoms reported Physical Exam - Vital signs Vitals: Temp Pulse Resp BP Pulse Ox 100.2 F 88 18 121/74 100 03/01/18 10:30 03/01/18 10:30 03/01/18 10:30 03/01/18 10:30 03/01/18 10:30 Interpretation: Normal - General General appearance: Appears well, Alert - HEENT Head: Normocephalic, Atraumatic Eyes: Normal Pupils: PERRL Ears: Normal External canal: Normal Tympanic membrane: Normal Sinus: Normal Nasal: Swelling, Clear rhinorrhea Mouth/Lips: Normal Mucous membranes: Normal Pharynx: Post nasal drainage. No: Erythema, Exudate, Tonsillar hypertrophy Neck: Anterior cervical chain - Respiratory Respiratory status: No respiratory distress Chest status: Nontender Breath sounds: Nonproductive cough. No: Productive cough, Rales, Rhonchi, Stridor, Wheezing Chest palpation: Normal - Cardiovascular Rhythm: Regular Heart sounds: Normal auscultation Murmur: No - Abdominal Inspection: Normal Distension: No distension Bowel sounds: Normal Tenderness: Nontender Organomegaly: No organomegaly - Back Back: Normal, Nontender - Extremities General upper extremity: Normal inspection, Nontender, Normal color, Normal ROM, Normal temperature General lower extremity: Normal inspection, Nontender, Normal color, Normal ROM, Normal temperature, Normal weight bearing. No: Chino's sign - Neurological Neuro grossly intact: Yes Cognition: Normal Orientation: AAOx4 Lisha Coma Scale Eye Opening: Spontaneous Lisha Coma Scale Verbal: Oriented Immaculata Coma Scale Motor: Obeys Commands Lisha Coma Scale Total: 15 Speech: Normal Motor strength normal: LUE, RUE, LLE, RLE Sensory: Normal - Psychological Associated symptoms: Normal affect, Normal mood - Skin Skin Temperature: Warm Skin Moisture: Dry Skin Color: Normal Course - Re-evaluation Re-evalutation: 03/01/18 11:07 Flu and strep test were both negative. Patient was given instructions on Mucinex Claritin and Sudafed Chloraseptic spray salt and soda solution gargles and follow-up with her primary doctor. Her lung sounds were clear. After performing a Medical Screening Examination, I estimate there is LOW risk for ACUTE CORONARY SYNDROME, RESPIRATORY FAILURE, SEPSIS OR MENINGITIS, thus I consider the discharge disposition reasonable. I have reevaluated this patient multiple times and no significant life threatening changes are noted. The patient and I have discussed the diagnosis and risks, and we agree with discharging home with close follow-up. We also discussed returning to the Emergency Department immediately if new or worsening symptoms occur. We have discussed the symptoms which are most concerning (e.g., changing or worsening pain, trouble swallowing or breathing, neck stiffness, fever) that necessitate immediate return. - Vital Signs Vital signs: Temp Pulse Resp BP Pulse Ox 100.2 F 88 18 121/74 100 03/01/18 10:30 03/01/18 10:30 03/01/18 10:30 03/01/18 10:30 03/01/18 10:30 Discharge - Discharge Clinical Impression: Viral sore throat URI (upper respiratory infection) Qualifiers: URI type: unspecified URI Qualified Code(s): J06.9 - Acute upper respiratory infection, unspecified Condition: Stable Disposition: HOME, SELF-CARE Additional Instructions: UPPER RESPIRATORY ILLNESS: You have a viral infection of the respiratory passages -- a "cold." This common infection causes nasal congestion, drainage, and often sore throat and cough. It is highly contagious. The disease usually lasts about 10 to 14 days. There is no "cure" for the viral infection -- it must run its course. If there is a complication, such as bacterial infection in the nose, sinuses, middle ear, or bronchial tubes, antibiotics may be required. The antibiotics won't affect the virus. Drink plenty of fluids. A humidifier may help. An expectorant medication or decongestant may make you more comfortable. Use acetaminophen or ibuprofen for fever or aches. See the doctor if fever persists over two days, if there is any significant worsening of your symptoms, or if you simply fail to improve as expected. DECONGESTANT MEDICATION: A decongestant medicine has been suggested. Often this medicine is combined in the same tablet with an antihistamine or expectorant. This type of medicine is helpful in treating a bad cold or sinus condition, as well as in treatment of the nasal congestion of hay fever. It is not of much benefit for lung infections. Decongestant medicines are related to stimulants. They can cause an increase in blood pressure and heart rate. Persons with heart disease and high blood pressure should not take decongestants without discussing this with the shira cisneros. If you develop palpitations, chest pain, headache, or tremors, stop the medicine and consult your physician. COUGH-SUPPRESSANT & EXPECTORANT MEDICATION: You are to use a cough medication as needed for relief of symptoms. This medicine is a combination of an expectorant (to make the mucous thinner and more easily "coughed up") and a cough suppressant (to reduce the frequency of coughing). The cough-suppressant medicine is related to narcotics. You may experience mild nausea and sleepiness. Some patients who are very sensitive to narcotics may have stomach pain from this medicine. Taking the medicine with food reduces these side effects. Do not drive or work with machinery until you know how this medicine affects you. The expectorant should have no side effects. Iodine-containing expectorants (such as organidin) should not be taken by persons with active thyroid disease unless approved by your doctor. Call the doctor if you develop shortness of breath, hives, rash, itching, lightheadedness, or severe nausea and vomiting. STEROID MEDICATION: You have been given an injection of or oral medicine of the cortisone/steroid class. This medication is used to control inflammation or allergy. Karri t is usually only given for a short period of time, until the acute process subsides. There are usually no side effects from short-term use of cortisone-like medications. Some persons feel an increased sense of well-being and are not sleepy at bedtime. Long-term use of cortisone medications is best avoided, unless required for a severe condition. If your condition does not remit, or relapses after the course of corticosteroid medication, you should consult your physician. USE OF ACETAMINOPHEN (Tylenol): Acetaminophen may be taken for pain relief or fever control. It's much safer than aspirin, offering a wider range of "safe" dosages. It is safe during . Some brand names are Tylenol, Panadol, Datril, Anacin 3, Tempra, and Liquiprin. Acetaminophen can be repeated every four hours. The following are maximum recommended dosages: >89 pounds or adults 650 mg to 900 mg Acetaminophen can be repeated every four hours. Maximum dose not to exceed 4000 mg a day. Ibuprofen Ibuprofen is an excellent, safe drug for pain control. In addition, it has potent antiinflammatory effects which are beneficial, especially in the treatment of injuries, arthritis, or tendonitis. It's best to take ibuprofen with food. Persons with ulcer disease or allergy to aspirin should notify their physician of this before taking ibuprofen. Take the medication exactly as prescribed. Don't take additional doses unless instructed to do so by your doctor. If you develop wheezing, shortness of breath, hives, faintness, stomach pain, vomiting, or dark black stools, return for re-evaluation at once. The medications that you can use for your viral symptoms are Flonase, Chloraseptic spray for the sore throat, Sudafed, Mucinex, Claritin or Zyrtec, and salt and soda solution gargles. Salt and soda solution gargle 1 quart of water 1 tablespoon of salt 1 teaspoon of baking soda Mixed 3 ingredients together and boil for 1 minute Placed in a covered quart jar Use 1/2 ounce of cold solution to gargle 3 times a day FOLLOW-UP CARE: If you have been referred to a physician for follow-up care, call the physicians office for an appointment as you were instructed or within the next two days. If you experience worsening or a significant change in your symptoms, notify the physician immediately or return to the Emergency Department at any time for re-evaluation. Referrals: CELIA SANTANA MD [Primary Care Provider] - Follow up in 3-5 days
[2018-03-01] MEDS ORDERED: DEXAMETHASONE 4 MG TABLET PO ONE (10:46)
[2018-03-01 11:00] LABS: A TYPE INFLUENZA AG NEGATIVE (NEGATIVE); B INFLUENZA AG NEGATIVE (NEGATIVE)
== END 2018-03-01 11:09 | disposition home or self-care (01) ==
LOC: ER 10:18
DX: J06.9 Acute upper respiratory infection, unspecified (principal); J02.9 Acute pharyngitis, unspecified; B97.89 Other viral agents as the cause of diseases classified elsewhere; R50.9 Fever, unspecified; M25.50 Pain in unspecified joint; H92.09 Otalgia, unspecified ear; R09.89 Other specified symptoms and signs involving the circulatory and respiratory systems; R51 Headache; R09.81 Nasal congestion; Z87.891 Personal history of nicotine dependence
CPT/HCPCS: 99283; 87070; 87880; 87804; J3490